=== PATIENT | male | born 1985 | race Caucasian/White ===

== ENCOUNTER 2020-04-11 17:11 | Emergency (ER) | payer MEDICAID ==
[~2020-04-11] VITALS: Ht 167.6 cm; Wt 95.3 kg
[2020-04-11 18:23] VITALS: BP 170/95
[2020-04-11] MEDS ORDERED: KETOROLAC TROMETH 60MG/2ML VIAL IM ONE (18:30)
[2020-04-11] MEDS ORDERED: cloNIDine HCL 0.1 MG TAB PO ONE (18:30)
[2020-04-11] MEDS ORDERED: cefTRIAXone SOD 1,000 MG VL IM ONE (18:30)
[2020-04-11] MEDS ORDERED: LIDOCAINE 1% HCL (LOCAL ANESTH.) INJ 20ML MDV ONE (18:31)
== END 2020-04-11 19:10 | disposition home or self-care (01) ==
LOC: ER 17:11
DX: S02.5XXA Fracture of tooth (traumatic), initial encounter for closed fracture (principal); K04.7 Periapical abscess without sinus; R03.0 Elevated blood-pressure reading, without diagnosis of hypertension; X58.XXXA Exposure to other specified factors, initial encounter; Y93.89 Activity, other specified; Y92.89 Other specified places as the place of occurrence of the external cause; Y99.8 Other external cause status
CPT/HCPCS: 96372; 99284; J0696; J1885; J2001

== ENCOUNTER 2020-11-07 12:41 | Inpatient (IN) | payer MEDICAID ==
[~2020-11-07] VITALS: Ht 167.6 cm; Wt 115.0 kg
[2020-11-07 13:50] LABS: Basophils # (auto) 0.1 10 ^3/uL (0-0.2); Basophils % (auto) 0.5 % (0.0-2.0); Eosinophils # (auto) 0.1 10 ^3/uL (0-0.8); Eosinophils % (auto) 0.7 % (0.0-7.0); Hematocrit 48.3 % (41.0-53.0); Hemoglobin 16.2 g/dL (13.5-17.5); Lymphocytes # (auto) 1.5 10 ^3/uL (0.4-5.4); Lymphocytes % (auto) 10.9 % (10.0-50.0); Mean Corpuscular Hemoglobin 27.8 pg (28.0-32.0); Mean Corpuscular Hgb Conc. 33.6 g/dL (32.0-36.0); Mean Corpuscular Volume 82.8 fL (80.0-100.0); Monocytes # (auto) 0.6 10 ^3/uL (0-1.3); Monocytes % (auto) 4.3 % (0.0-12.0); Neutrophils # (auto) 11.5 10 ^3/uL (1.6-8.6); Neutrophils % (auto) 83.6 % (37.0-80.0); Nucleated Red Blood Cells % 0.1 %; Platelet Count (auto) 256 10^3/uL (140-450); Red Blood Cells 5.83 10^6/uL (4.5-5.90); Red Cell Distribution Width 15.7 % (11.8-14.3); White Blood Cell 13.7 10^3/uL (4.4-10.8)
[2020-11-07 14:24] LABS: Albumin 4.5 g/dL (3.4-5.0); Calcium 9.8 mg/dL (8.5-10.1); Potassium 3.9 mmol/L (3.5-5.1)
[2020-11-07 14:30] LABS: BUN/Creatinine Ratio 9.5; Bilirubin, Total 0.7 mg/dL (0.2-1.0); Total Protein 8.4 g/dL (6.4-8.2)
[2020-11-07] MEDS ORDERED: SODIUM CHLORIDE 0.9% 2,000 ML IV ONE (18:30)
[2020-11-07] MEDS ORDERED: ACETAMINOPHEN 325 MG TAB PO PRN (18:30)
[2020-11-07] MEDS ORDERED: MORPHINE SULF INJ 2 MG/ML SYRINGE 1ML IV PRN (18:30)
[2020-11-07] MEDS ORDERED: NITROGLYCERIN 0.4 MG SL TAB SL PRN (18:30)
[2020-11-07] MEDS ORDERED: hydrALAZINE HCL 20 MG/ML VL IV PRN (18:30)
[2020-11-07] MEDS ORDERED: ONDANSETRON HCL 4 MG/2 ML VIAL IV PRN (18:30)
[2020-11-07] MEDS ORDERED: HYDROcodone-ACET 5/325MG TAB PO PRN (18:30)
[2020-11-07 20:15] VITALS: BP 160/99
[2020-11-07] MEDS ORDERED: ENOXAPARIN SOD 100 MG/1 ML SYRINGE SC ONE ×2 (20:15→21:00)
[2020-11-07] MEDS ORDERED: ASPirin 81 mg TAB PO ONE (20:15)
[2020-11-07 20:18] LABS: Amphetamine Screen, Urine NEGATIVE (NEGATIVE); Barbiturate Scree,Urine NEGATIVE (NEGATIVE); Benzodiazephine Screen, Urine NEGATIVE (NEGATIVE); Cannabinoid Screen, Urine NEGATIVE (NEGATIVE); Cocaine Screen, Urine NEGATIVE (NEGATIVE); Opiate Scree,Urine NEGATIVE (NEGATIVE); Phencyclidine Screen, Urine NEGATIVE (NEGATIVE)
[2020-11-07] MEDS ORDERED: ASPirin 325 MG TAB PO ONE (21:00)
[2020-11-07] MEDS ORDERED: METOPROLOL TARTRATE 50 MG TAB PO ONE (21:00)
[2020-11-08] VITALS (10 sets, daily range): BP systolic 131–160; BP diastolic 71–99
[2020-11-08] MEDS ORDERED: ATOR10TA PO (03:25)
[2020-11-08] MEDS ORDERED: LOSA25TA2 PO (03:26)
[2020-11-08] MEDS ORDERED: INFLUENZA QUAD 2020-2021 0.5 ML SYRG IM ONE (03:30)
[2020-11-08 07:08] LABS: Basophils # (auto) 0 10 ^3/uL (0-0.2); Basophils % (auto) 0.5 % (0.0-2.0); Eosinophils # (auto) 0.2 10 ^3/uL (0-0.8); Eosinophils % (auto) 1.9 % (0.0-7.0); Hematocrit 42.8 % (41.0-53.0); Hemoglobin 14.5 g/dL (13.5-17.5); Lymphocytes # (auto) 2.5 10 ^3/uL (0.4-5.4); Lymphocytes % (auto) 28.2 % (10.0-50.0); Mean Corpuscular Hemoglobin 28.1 pg (28.0-32.0); Mean Corpuscular Hgb Conc. 33.8 g/dL (32.0-36.0); Mean Corpuscular Volume 83.3 fL (80.0-100.0); Monocytes # (auto) 0.4 10 ^3/uL (0-1.3); Monocytes % (auto) 4.7 % (0.0-12.0); Neutrophils # (auto) 5.6 10 ^3/uL (1.6-8.6); Neutrophils % (auto) 64.7 % (37.0-80.0); Nucleated Red Blood Cells % 0.3 %; Platelet Count (auto) 232 10^3/uL (140-450); Red Blood Cells 5.14 10^6/uL (4.5-5.90); Red Cell Distribution Width 15.5 % (11.8-14.3); White Blood Cell 8.7 10^3/uL (4.4-10.8)
[2020-11-08 07:22] LABS: INR 1.12 (0.9-1.15); Partial Thromboplastin Time 34.3 sec (23.0-31.2)
[2020-11-08 07:31] LABS: Albumin 3.8 g/dL (3.4-5.0); Calcium 9.1 mg/dL (8.5-10.1); Potassium 3.9 mmol/L (3.5-5.1)
[2020-11-08 07:36] LABS: BUN/Creatinine Ratio 13.4; Bilirubin, Total 0.5 mg/dL (0.2-1.0); Total Protein 7.3 g/dL (6.4-8.2)
[2020-11-08] MEDS ORDERED: LIDOCAINE 2%HCL (LOCAL ANESTH.) INJ 20ML MDV ONE (08:42)
[2020-11-08] MEDS ORDERED: IODIXANOL 320MG/ML 100ML BTL IV ONE (08:42)
[2020-11-08] MEDS ORDERED: ANGIOMAX 250 MG VIAL IV ONE (08:57)
[2020-11-08] MEDS ORDERED: fentaNYL CITRATE 100 MCG/2 ML VL ONE ×2 (08:58→09:41)
[2020-11-08] MEDS ORDERED: VERAPAMIL 2.5MG/ML INJ 2ML VIAL IV ONE (08:58)
[2020-11-08] MEDS ORDERED: MIDAZOLAM HCL 1MG/1ML-2 ML VIAL ONE ×2 (08:58→09:41)
[2020-11-08] MEDS ORDERED: HEPARIN SODIUM (PORCINE) 5000 UNITS/ML 1ML VIAL ONE (08:58)
[2020-11-08] MEDS ORDERED: SODIUM CHL 0.9% 50 ML ONE (08:58)
[2020-11-08] MEDS ORDERED: ASPirin 325 MG TAB ONE (09:56)
[2020-11-08] MEDS ORDERED: TICAGRELOR 90 MG TAB ONE (09:56)
[2020-11-08] MEDS: ASPirin 81 mg TAB PO SCH (10:00)
[2020-11-08] MEDS ORDERED: METOPROLOL TARTRATE 50 MG TAB PO SCH (10:00)
[2020-11-08] MEDS ORDERED: METOPROLOL SUCCINATE XL 50 MG TAB PO SCH (10:00)
[2020-11-08] MEDS ORDERED: ENOXAPARIN SOD 100 MG/1 ML SYRINGE SC SCH (10:00)
[2020-11-08] MEDS ORDERED: LISI-275 PO (12:45)
[2020-11-08] MEDS ORDERED: TICA90TA PO (12:45)
[2020-11-08] MEDS ORDERED: CAR3125T PO (12:45)
[2020-11-08] MEDS ORDERED: ASPI1CHW15 PO (12:45)
[2020-11-08] MEDS ORDERED: ATOR20TA50 PO (12:45)
[2020-11-08 13:19] LABS: Cholesterol 114 mg/dL (< 200); HDL Cholesterol 24 mg/dL (40-59); LDL Cholesterol 69 mg/dL (< 100); Triglycerides 354 mg/dL (< 150)
[2020-11-08] MEDS ORDERED: ATORVASTATIN 20 MG TAB PO SCH (17:30)
[2020-11-08] MEDS: TICAGRELOR 90 MG TAB PO SCH (21:38)
[2020-11-08] MEDS: CARVEDILOL 3.125 MG TAB PO SCH (21:38)
[2020-11-09 05:11] VITALS: BP 124/70
[2020-11-09 08:15] VITALS: BP 147/84
[2020-11-09 09:00] VITALS: BP 147/84
[2020-11-09] MEDS: ASPirin 81 mg TAB PO SCH (09:31)
[2020-11-09] MEDS: CARVEDILOL 3.125 MG TAB PO SCH (09:32)
[2020-11-09] MEDS: TICAGRELOR 90 MG TAB PO SCH (09:32)
[2020-11-09] MEDS ORDERED: LISINOPRIL 5 MG TAB PO SCH (10:00)
[2020-11-09 13:00] VITALS: BP_SYST 112; BP_SYST 149; BP_DIAS 68; BP_DIAS 81
[2020-11-09 15:38] VITALS: BP 149/81
== END 2020-11-09 16:30 | disposition home or self-care (01) | DRG 174 ==
LOC: ER 12:41 → TELE-EAST 18:26
PROVIDERS: ADMIT Internal Medicine; ATTEND Internal Medicine
PROC: 027034Z Dilation of Coronary Artery, One Artery with Drug-eluting Intraluminal Device, Percutaneous Approach (ICD-10-PCS; principal; 2020-11-08)
PROC: 4A023N7 Measurement of Cardiac Sampling and Pressure, Left Heart, Percutaneous Approach (ICD-10-PCS; 2020-11-08)
PROC: B2111ZZ Fluoroscopy of Multiple Coronary Arteries using Low Osmolar Contrast (ICD-10-PCS; 2020-11-08)
PROC: B2151ZZ Fluoroscopy of Left Heart using Low Osmolar Contrast (ICD-10-PCS; 2020-11-08)
DX: I21.4 Non-ST elevation (NSTEMI) myocardial infarction (principal); E66.01 Morbid (severe) obesity due to excess calories; Z68.41 Body mass index [BMI] 40.0-44.9, adult; D72.829 Elevated white blood cell count, unspecified; E78.5 Hyperlipidemia, unspecified; I10 Essential (primary) hypertension; Z20.822 Contact with and (suspected) exposure to COVID-19; I25.10 Atherosclerotic heart disease of native coronary artery without angina pectoris; Z82.49 Family history of ischemic heart disease and other diseases of the circulatory system; Z82.5 Family history of asthma and other chronic lower respiratory diseases
CPT/HCPCS: 36415; 71046; 80053; 80061; 80307; 84484; 85025; 85379; 85610; 85730; 86850; 86900; 86901; 87426; 92928; 93005; 93306; 93458; 96360; 96361; 96372; 99152; 99153; C1874; G0378; J2250; Q9967